=== PATIENT | female | born 1965 | race Caucasian/White ===

== ENCOUNTER 2016-11-13 08:58 | Day surgery (SDC) | payer OTHER ==
[2016-11-09 16:54] VITALS: BMI 50.6
[~2016-11-13] VITALS: Ht 165.1 cm; Wt 137.2 kg
[2016-11-13] VITALS (13 sets, daily range): BP systolic 98–141; BP diastolic 46–69; PULSE 90–100; RESP 11–22; Ht 165.1 cm; Wt 137.2 kg
[2016-11-13] MEDS ORDERED: METF1000 PO (10:01)
[2016-11-13] MEDS ORDERED: AMLO1CAP8 PO (10:02)
[2016-11-13] MEDS ORDERED: LEVO100T82 PO (10:03)
[2016-11-13] MEDS ORDERED: ATOR40TA68 PO (10:03)
[2016-11-13] MEDS ORDERED: GLIM4TAB PO (10:04)
[2016-11-13] MEDS ORDERED: VENL150C PO (10:05)
[2016-11-13] MEDS ORDERED: VENL75TA2 PO (10:05)
[2016-11-13] MEDS ORDERED: FENTAnyl 50 MCG/ML VIAL ONE (11:25)
[2016-11-13] MEDS ORDERED: ROPIVACAINE 0.5 % 30 ML VIAL ONE ×2 (11:25→15:23)
[2016-11-13] MEDS ORDERED: MIDAZOLAM 1 MG/ML 2 ML INJ ONE ×2 (11:25→12:55)
--- NOTE | 2016-11-13 12:23 | HPN ---
Date/Time of Note Date/Time of Note DATE: 11/13/16 TIME: 12:23 Interval H&P Admission Note Pt. seen H&P reviewed: No system changes MELL ZELAYA MD Nov 13, 2016 12:23
[2016-11-13] MEDS ORDERED: LIDOCAINE 2% (SDV) 5 ML INJ ONE (12:55)
[2016-11-13] MEDS ORDERED: CEFAZOLIN 1 GM INJ ONE ×2 (13:05→15:55)
[2016-11-13] MEDS ORDERED: PHENYLephrine (100 MCG/ML) 5ML SYG ONE ×2 (13:11→14:08)
[2016-11-13] MEDS ORDERED: PROPOFOL 40 ML ONE (13:18)
[2016-11-13] MEDS ORDERED: ROCURONIUM 50 MG INJ ONE (13:18)
[2016-11-13] MEDS ORDERED: SUCCINYLCHOLINE CHLORIDE 100 MG/5 ML SYG IV ONE (13:18)
[2016-11-13] MEDS ORDERED: FAMOTIDINE 20 MG INJ ONE (13:25)
[2016-11-13] MEDS ORDERED: ONDANSETRON 4 MG INJ ONE (13:25)
[2016-11-13] MEDS ORDERED: EPHEDrine SULFATE 50 MG/5 ML SYG ONE (13:48)
[2016-11-13] MEDS ORDERED: ROPIVACAINE 0.5 % 30 ML VIAL INJ ONE (14:18)
[2016-11-13] MEDS ORDERED: INSULIN ASPART [NOVOLOG] 3 ML PEN SC ONE (14:30)
[2016-11-13] MEDS ORDERED: FENTAnyl 50 MCG/ML VIAL IV PRN (14:30)
[2016-11-13] MEDS ORDERED: MEPERIDINE 25 MG INJ IV PRN (14:30)
[2016-11-13] MEDS ORDERED: HYDROmorphONE (0.2 MG/ML) 10ML SYG IV PRN ×3 (14:30)
[2016-11-13] MEDS ORDERED: PROCHLORPERAZINE 10 MG INJ IV PRN (14:30)
[2016-11-13] MEDS ORDERED: ONDANSETRON 4 MG INJ IV PRN ×2 (14:30→16:00)
[2016-11-13] MEDS ORDERED: OXYCODONE/ACETAMINOPHEN (5/325) TAB PO PRN ×4 (14:30→16:00)
[2016-11-13] MEDS ORDERED: DIPHENHYDRAMINE 50 MG INJ IV PRN (14:30)
[2016-11-13] MEDS ORDERED: GLYCOPYRROLATE 1 MG INJ ONE (15:21)
[2016-11-13] MEDS ORDERED: NEOSTIGMINE 3 MG/3 ML SYRINGE ONE (15:21)
[2016-11-13] MEDS ORDERED: HYDROmorphONE 2 MG/ML SYG ONE (15:22)
[2016-11-13] MEDS ORDERED: SOD CHLORIDE 0.9% 1,000 ML IV SCH (15:52)
--- NOTE | 2016-11-13 15:52 | OPPN ---
Date/Time of Note Date/Time of Note DATE: 11/13/16 TIME: 15:49 Operative Report Preoperative Diagnosis left ankle pain, OCD lesion Postoperative Diagnosis same Operation/Procedure Performed left ankle arthroscopy, debridement, microfracture, loose body removal Surgeon see signature line central supply assistant Joaquin Anesthesia: general Estimated blood loss: minimal Transfusion Required none Specimen none Grafts/Implants none Complications none MELL ZELAYA MD Nov 13, 2016 15:51
[2016-11-13] MEDS ORDERED: morphine 2 MG INJ IV PRN (16:00)
--- NOTE | 2016-11-13 23:46 | OPR ---
DATE OF OPERATION: 11/13/2016 PREOPERATIVE DIAGNOSIS: Osteochondral lesion, medial talar dome, left ankle. POSTOPERATIVE DIAGNOSES: 1. Unstable osteochondral lesion, medial talar dome, left ankle, 10 x 3 mm. 2. Larger osteochondral loose body, greater than 2 cm. 3. Synovitis, fibrosis and osteophytes, left ankle. OPERATION PERFORMED: 1. Arthroscopy, left ankle, with soft tissue distraction. 2. Excision, osteochondral lesion, medial talar dome. 3. Drilling and microfracture, osteochondral lesion, medial talar dome. 4. Extensive debridement, ankle. 5. Removal of osteochondral loose body. 6. Short-leg splint. 7. Extremely complex, difficult procedure because the patient's ankle was extremely tight. In addition, she had a BMI of 51, which made it very difficult to maneuver the ankle and maneuver the arthroscope, necessitated an additional 30 minutes of operative time (22). SURGEON: Sushil Jeronimo MD INSPECTOR FILTER TIP: Anne Nuñez MD ANESTHESIA: General with popliteal block. TOURNIQUET TIME: 96 minutes. OPERATIVE PROCEDURE: Patient taken to the operating room and placed in the supine position. Satisfactory popliteal block was given. Satisfactory general anesthesia was administered; 3 g of Ancef intravenously because of her size. It was very difficult to position the patient. With a lot of help, we were able to put the thigh support on. We marked out the superficial peroneal nerve. The left leg was prepped and draped in the usual manner. The tourniquet inflated to 300 mmHg. Soft tissue distraction applied. The ankle was quite tight, even with distraction. There was synovitis along the medial malleolar articulation, osteophytes along the distal tibia, and synovitis along the lateral gutter. Essentially, there was irregularity consistent with an osteochondral injury of the central medial talar dome. The rest of the articular surface was relatively smooth, with minimal grade 1 chondromalacia. Synovitis seen posteriorly as well. The medial gutter was debrided with a shaver, soft tissue peeled off the distal tibia. Bur was used to remove the anterior osteophytes. The medial gutter and lateral gutters were debrided further. The deltoid ligament and anterior talofibular ligament were intact. The osteochondral lesion was viewed from the posterolateral portal. Using different angled curettes, it was loosened. It was removed. It was right on the shoulder of the medial talar dome, extended anteriorly and posteriorly. Good sharp margins were made. When we were done, it measured 10 x 3 mm. The microfracture pick was inserted, and multiple microfracture holes were placed. One drill hole was made percutaneous to a 0.045 K-wire. One drill hole was made, with transtalar drilling, using the microvector drill guide with 0.045 K-wire. After complete debridement of the ankle, we used a 70- degree arthroscope and found anteriorly a large loose body. It floated to the back. Through the posterolateral portal, we removed the loose body, which measured 2 cm in diameter. After complete debridement, the ankle was irrigated clear. Wounds were closed with 4-0 black nylon, number 7 nerve block and 0.5 percent ropivacaine. Compression dressing applied, as well as posterior and U-splints in neutral position. At the end of the procedure, sponge, needle count was correct. Patient tolerated the procedure well. Dictated By: Sushil Jeronimo MD /justice/serge /Document#: [id number]
--- NOTE | 2016-11-16 08:19 | OPR ---
DATE OF OPERATION: 11/13/2016 ADDENDUM CIGAR PACKING EXAMINER ORTHOPEDIC SURGEON: During the procedure, an assistant warehouse manager orthopedic surgeon was used at my request. The assistant warehouse manager helped with manipulating the ankle, mobilizing the arthroscope and drilling the ankle osteochondral lesion, while I maintained the appropriate position. Without a skilled orth opedic surgeon assisting me, this could not have been done; therefore, it should be compensated appr opriately. Dictated By: MELL ZELAYA MD RF/LINSEY Conf#: [id number] DID#: [id number]
== END 2016-11-13 17:36 | disposition home or self-care (01) ==
LOC: SDS 08:58
PROVIDERS: ATTEND Orthopaedic Surgery
DX: M93.872 Other specified osteochondropathies, left ankle and foot (principal); M65.872 Other synovitis and tenosynovitis, left ankle and foot; E66.9 Obesity, unspecified; Z68.43 Body mass index [BMI] 50.0-59.9, adult
CPT/HCPCS: 29891; 29892; 29894; 29897; 82962; 84703; J0690; J1170; J2250; J2370; J2405; J2710; J2795; J3010; J7999; J1815